=== PATIENT | male | born 1995 | race Two or more races ===

== ENCOUNTER → 2023-06-12 | Emergency (ER) | payer MEDICAID ==
[~2023-06-12] VITALS: Ht 165.1 cm; Wt 63.6 kg
[~2023-06-12] MED LIST: ALBU18HF2 INH; dexamethasone sod phosphate 10mg/ml inj PO STA
[2023-06-12 08:27] LABS: BASOPHILS % (AUTO) 0.5 % (0-1); EOSINOPHILS # (AUTO) 0.1 X10'3 (0-0.9); EOSINOPHILS % (AUTO) 1.2 % (0-6); HEMATOCRIT 45.9 % (42.0-52.0); HEMOGLOBIN 15.6 g/dl (14.0-17.9); LYMPHOCYTES # (AUTO) 3.3 X10'3 (1.1-4.8); LYMPHOCYTES % (AUTO) 36.7 % (21-51); MEAN CORPUSCULAR HEMOGLOBIN 30.3 PG (27.0-31.0); MEAN CORPUSCULAR VOLUME 89.2 FL (78-98); MONOCYTES # (AUTO) 0.8 X10'3 (0-0.9); MONOCYTES % (AUTO) 8.4 % (2-12); NEUTROPHILS # (AUTO) 4.8 X10'3 (1.8-7.7); NEUTROPHILS % (AUTO) 53.2 % (42-75); PLATELET COUNT 143 X10'3 (140-440); RED BLOOD COUNT 5.15 X10'6 (4.70-6.10)
[2023-06-12 08:30] VITALS: BP 124/67; PULSE 81; RESP 18; TEMP 99.1; O2SAT 97
[2023-06-12 08:57] LABS: ALANINE AMINOTRANSFERASE 76 U/L (12-78); ALBUMIN 3.6 G/DL (3.4-5.0); ALBUMIN/GLOBULIN RATIO 0.8 (1.1-1.5); ALKALINE PHOSPHATASE 55 IU/L (46-116); ANION GAP 9 (8-16); ASPARTATE AMINO TRANSFERASE 39 U/L (10-37); BILIRUBIN,TOTAL 0.3 MG/DL (0.1-1.0); BLOOD UREA NITROGEN 12 MG/DL (7-18); CHLORIDE 103 MMOL/L (99-107); GLUCOSE 178 MG/DL (70-104); POTASSIUM 3.9 MMOL/L (3.5-5.1); SODIUM 139 MMOL/L (135-145); TOTAL CARBON DIOXIDE 26.7 MMOL/L (24-32); eCRCL 94 ML/MIN; eGFR 88 ML/MIN
[2023-06-12 08:58] LABS: PRO BRAIN NATRIURETIC PEPTIDE < 30 PG/ML (0-125)
== END | disposition home or self-care (01) ==
LOC: ER 06:24
DX: J40 Bronchitis, not specified as acute or chronic (principal)
CPT/HCPCS: 71045; 80053; 83880; 84484; 85025; 93005; 99285; J1100

== ENCOUNTER 2024-04-12 11:32 | Emergency (ER) | payer MEDICAID ==
[~2024-04-12] VITALS: Ht 165.1 cm; Wt 63.8 kg
[~2024-04-12 11:32] MED LIST changes: -dexamethasone sod phosphate 10mg/ml inj PO STA
[2024-04-12] MEDS: ondansetron 4mg rapidly disintigrating tab PO ONE (12:39)
[2024-04-12] MEDS: acetaminophen 325mg tablet PO ONE (12:43)
[2024-04-12] MEDS: ketorolac trometh 15mg/ml vial 15 MG/ML ML IM ONE (12:45)
[2024-04-12] MEDS ORDERED: IBUP-1984 PO (14:37)
[2024-04-12] MEDS ORDERED: TAM75C PO (14:37)
[2024-04-12] MEDS: oseltamivir phos 75mg capsule PO ONE (14:42)
[2024-04-12 14:49] VITALS: BP 127/71; PULSE 107; RESP 16; TEMP 98.9; O2SAT 98
== END 2024-04-12 14:51 | disposition home or self-care (01) ==
LOC: ER 11:33
DX: J11.1 Influenza due to unidentified influenza virus with other respiratory manifestations (principal); Z20.822 Contact with and (suspected) exposure to COVID-19
CPT/HCPCS: 36415; 87502; 87503; 87811; 96372; 99284; J1885

== ENCOUNTER 2024-07-12 13:19 | Emergency (ER) | payer MEDICAID ==
[~2024-07-12] VITALS: Ht 165.1 cm; Wt 65.0 kg
[2024-07-12 13:22] VITALS: TEMP 98.6
[2024-07-12] MEDS ORDERED: CYCL-1 PO (14:56)
[2024-07-12] MEDS ORDERED: LIDO700A32 TOP (14:56)
[2024-07-12] MEDS ORDERED: IBUP-1986 PO (14:56)
[2024-07-12] MEDS: ketorolac trometh 15mg/ml vial 15 MG/ML ML IM ONE (15:09)
[2024-07-12] MEDS: cyclobenzaprine 10mg tablet PO ONE (15:09)
[2024-07-12] MEDS: LIDOcaine 5% patch TP ONE (15:14)
[2024-07-12 15:56] VITALS: BP 121/84; PULSE 68; RESP 18; O2SAT 84
== END 2024-07-12 15:59 | disposition home or self-care (01) ==
LOC: ER 13:20
DX: M54.2 Cervicalgia (principal); Z79.1 Long term (current) use of non-steroidal anti-inflammatories (NSAID); Z79.899 Other long term (current) drug therapy
CPT/HCPCS: 96372; 99283; J1885

== ENCOUNTER 2025-04-16 15:09 | Emergency (ER) | payer MEDICAID, OTHER ==
[~2025-04-16] VITALS: Ht 165.1 cm; Wt 63.4 kg
[~2025-04-16 15:09] MED LIST changes: +CYCL-1 PO; +IBUP-1986 PO; +LIDO-52 TOP
--- NOTE | 2025-04-16 15:49 | ELECTROCARDIOGRAPH REPORT ---
[facility] Test Date: 2025-04-16 Test Time: 15:32:07 Pat Name: LILIA AGRAWAL Department: EMERGENCY ROOM Patient ID: [facility]-[id number] Room: Gender: M Vapor Coater: NINFA : 1995 Requested By: MARIA A FOWLER Order Number: [id number] Reading MD: Dr. Maria A Fowler Measurements Intervals Vance Rate: 104 P: 82 ND: 171 QRS: 1 QRSD: 90 T: 59 QT: 317 QTc: 417 Interpretive Statements Sinus tachycardia ST elev, probable normal early repol pattern Electronically Signed On 04-16-2025 17:15:[address] Maria A Fowler Please click the below link to view image of tracing.
[2025-04-16 15:53] LABS: MEAN PLATELET VOLUME 10.4 FL (7.4-10.4); RED CELL DISTRIBUTION WIDTH 13.4 % (11.5-14.5)
--- NOTE | 2025-04-16 15:59 | RADIOLOGY REPORT ---
CHEST RADIOGRAPH Indication: CP Technique: Single frontal view of the chest was obtained Comparison: DI CHEST,SINGLE VIEW on DOS: 06/12/23 FINDINGS: Lines and Tubes: None Lungs: No focal consolidation. Pleura: No effusion. No pneumothorax. Cardiomediastinal contours: Unremarkable Bones: No acute osseous abnormality. 8 mm round metallic density overlying the left lateral lower chest/ upper abdominal wall which may be external to the patient.. IMPRESSION: No acute cardiopulmonary disease.
[2025-04-16 16:14] LABS: CREATININE 0.74 MG/DL (0.60-1.10); PRO BRAIN NATRIURETIC PEPTIDE < 30 PG/ML (0-125); TOTAL CARBON DIOXIDE 26.7 MMOL/L (24-32); eCRCL 125 ML/MIN; eGFR > 90 ML/MIN
--- NOTE | 2025-04-16 17:50 | Physician Documentation ---
History of Present Illness ~ Chief Complaint: Chest Pain Stated Complaint: ASTHMA Time Seen by MD: 17:32 Mode of Arrival: POV, Ambulatory HPI 30-year-old male presents to the ED with a complaint of black stools which have since resolved. States he has had nausea vomiting in the last week. He is concerned because he has a long history of anxiety and OCD and his dad was recently hospitalized which has produce increased anxiety for him. Reports having abdominal pain. Otherwise he is healthy Day of Onset: Apr 16, 2025 Medication Reconciliation Allergies: Coded Allergies: No Known Allergies (Unverified , 04/16/25) Scheduled Ibuprofen (Ibuprofen), 1 TAB PO Q8H Lidocaine (Lidoderm), 1 PATCH TOP DAILY Scheduled PRN Albuterol Sulfate (Ventolin Hfa), 2 PUFFS INH Q4HPRN PRN for SOB or wheezing Cyclobenzaprine* (Cyclobenzaprine*), 1 TAB PO HS PRN for muscle spasms Past Medical History Past Medical History: No Pertinent History Past Surgical History: no surgical history Drug Use: none Lives In: Home Physical Exam Vital Signs: Temperature: 97.4, Source: Temporal, Heart Rate: 105, Respiratory Rate: 23, BP: 129/83, Pulse Oximetry: 99, Weight: 63.400 Oxygen Flow Rate: 0 Physical Exam General: Alert, no apparent distress. HEENT: PERRL, EOMI, no injection, moist mucous membranes. Neck: Full range of motion. Respiratory: Lungs clear, no respiratory distress. Chest: No accessory muscle use. Cardiovascular: Regular rate and rhythm, no murmurs. Gastrointestinal: Soft, nontender, nondistended. Bowels sounds present. Extremities: Normal range of motion, no deformity. Neurologic: Oriented x4. Psychiatric: Normal mood and affect. Skin: Normal color, warm and dry. No edema, no ecchymosis. Progress Results/Orders Results/Orders Completed Orders - SAMMY GATES NP Pantoprazole 40mg Iv (Protonix 40mg Iv) (04/16/25 17:45) Ondansetron Inj. (Zofran 4mg/2ml Vial) (04/16/25 17:45) Normal Saline 1000ml (0.9% Sodium Chlori (04/16/25 17:45) Medications Received in ER Medications (Trade) Dose Ordered Sig/Roberto Route PRN Reason Start Time Stop Time Status Last Admin Dose Admin (Protonix 40mg IV) 40 mg NOW ONCE IV 04/16/25 17:45 04/16/25 17:46 DC 04/16/25 18:01 40 MG (Zofran 4mg/2ml vial) 4 mg ONCE ONCE IV 04/16/25 17:45 04/16/25 17:46 DC 04/16/25 18:01 4 MG (0.9% sodium chloride (NS) 1000ml IV soln) 2,000 ml ONCE ONCE IVB 04/16/25 17:45 04/16/25 17:48 DC 04/16/25 18:01 2,000 ML Vital Signs 04/16/25 04/16/25 04/16/25 15:25 17:38 18:24 Temp 97.4 Pulse 105 84 Resp 20 23 14 B/P (MAP) 129/83 119/74 (89) Pulse Ox 99 98 O2 Flow Rate 0 Laboratory Tests Test 04/16/25 15:42 04/16/25 17:25 White Blood Count 5.9 Red Blood Count 4.63 L Hemoglobin 13.8 L Hematocrit 40.7 L Mean Corpuscular Volume 88.0 Mean Corpuscular Hemoglobin 29.8 Mean Corpuscular Hemoglobin Concent 33.8 Red Cell Distribution Width 13.4 Platelet Count 137 L Mean Platelet Volume 10.4 Neutrophils (%) (Auto) 67.0 Lymphocytes (%) (Auto) 19.0 L Monocytes (%) (Auto) 13.4 H Eosinophils (%) (Auto) 0.1 Basophils (%) (Auto) 0.5 Neutrophils # (Auto) 4.0 Lymphocytes # (Auto) 1.1 Monocytes # (Auto) 0.8 Eosinophils # (Auto) 0.0 Basophils # (Auto) 0.0 CBC Comment Sodium Level 139 Potassium Level 3.7 Chloride Level 102 Carbon Dioxide Level 26.7 Anion Gap 10 Blood Urea Nitrogen 11 Creatinine 0.74 Estimated GFR/1.73 m2 > 90 BUN/Creatinine Ratio 14.9 Glucose Level 88 Calcium Level 8.9 Troponin I High Sensitivity 4 6 Pro-B-Type Natriuretic Peptide < 30 Albumin 3.9 Chemistry Comments Troponin I High Sens Percent Delta 50 Troponin I Hi Sens Absolute Change 2 Medical Decision Making Additional information obtaine: old records Findings Patient's labs x-ray and EKG were all reassuring. Suspect that anxiety is a large component of the patient's presentation. I did provide him with a fluid bolus Protonix and Zofran and he reported largely improved symptoms. My interpretation EKG is normal sinus rhythm without any axis deviation no ST- elevation. New line per my interpretation of the x-ray showed no signs of opacities or effusion Labs showed no signs of cardiac events. Heart Score: 1 Differential Dx:Considerations: Include: angina, aortic dissection, chest wall pain, cholelithiasis, CHF, costochondritis, esophageal reflux/spasm, gastritis, herpes zoster, myocardial infarction, pericarditis, pleuritis, pancreatitis, pneumonia, pneumothorax, pulmonary embolus, other Departure Disposition: HOME / SELF CARE / HOMELESS Impression: Primary Impression: Anxiety about health Condition: Improved Discharge Instructions: Nonspecific Chest Pain, Adult Referrals: NO PRIMARY CARE PROVIDER (PCP) Signature Scribe Signature: Attestation: Scribed for Sammy Gates Career Services Representative by Sammy Corea NP . 04/16/25 18:32 SAMMY GATES PROCESS SAFETY ENGINEER Apr 16, 2025 17:50
[2025-04-16] MEDS: ondansetron/PF 4mg/2ml inj IV ONE (18:01)
[2025-04-16] MEDS: normal saline 1000ML IV soln IVB ONE (18:01)
[2025-04-16 19:48] VITALS: BP 120/78; PULSE 89; RESP 18; TEMP 97.4; O2SAT 95
== END 2025-04-16 20:06 | disposition home or self-care (01) ==
LOC: ER 15:10
DX: F41.9 Anxiety disorder, unspecified (principal); R06.2 Wheezing; Z79.899 Other long term (current) drug therapy
CPT/HCPCS: 36415; 71045; 80048; 83880; 84484; 85025; 93005; 96365; 96375; 99285; J2405; J2470; J7030